=== PATIENT | female | born 1965 | race Caucasian/White ===

== ENCOUNTER 2019-03-17 02:12 | Emergency (ER) | payer BC ==
[2019-03-17 02:23] VITALS: BP 149/94
[2019-03-17] MEDS ORDERED: GLUCAGON,HUMAN RECOMB 1 MG INJ IM ONE (02:40)
--- NOTE | 2019-03-17 02:41 | ER Document Report ---
ED General - General Chief Complaint: Difficulty Swallowing Stated Complaint: VOMITING,POSSIBLE ESOPHAGEAL OBSTUCTION Time Seen by Provider: 03/17/19 02:27 Notes: Patient is a 53-year-old female who presents the emergency department with a chief complaint of piece of food stuck in her esophagus. She states that this evening she was eating at [employer] and felt a piece of her food gets lodged in her esophagus. Patient does have false teeth, therefore sometimes she does have food gets stuck in her esophagus, but normally it goes down for time, but this time it did not. She had dinner at 7 PM this evening. She states that she has also been vomiting. She states that she can feel every time she swallows something is in there. She has attempted to drink, but has not been able to keep any of her drink down. She states that she does feel anxious. She does take lorazepam 2 mg as needed. Her last dose was at 2200, and she states that since she has had the food stuck in her esophagus, she has been more anxious than normal. She also takes oxycodone and smokes marijuana. TRAVEL OUTSIDE OF THE [place] IN LAST 30 DAYS: No - Related Data Allergies/Adverse Reactions: No Known Allergies Allergy (Verified 03/17/19 02:23) Past Medical History - Social History Smoking Status: Never Smoker Frequency of alcohol use: None Drug Abuse: None Family History: Reviewed & Not Pertinent Patient has suicidal ideation: No Patient has homicidal ideation: No Renal/ Medical History: Denies: Hx Peritoneal Dialysis Review of Systems - Review of Systems Notes: REVIEW OF SYSTEMS: CONSTITUTIONAL : Denies recent illness. Denies recent unintentional weight loss. Denies fever, chills, or sweats. EENT: Denies eye, ear, throat, or mouth pain, discharge, or symptoms. Denies nasal or sinus congestion. CARDIOVASCULAR: Denies chest pain. RESPIRATORY: Denies shortness of breath, cough, congestion, difficulty breathing, or wheezing. GASTROINTESTINAL: See HPI GENITOURINARY: Denies difficulty urinating, burning, blood in urine, urgency or frequency. MUSCULOSKELETAL: Denies neck and back pain. Denies joint pain or swelling. SKIN: Denies rash, itchiness, or lesions HEMATOLOGIC : Denies easy bruising or bleeding. LYMPHATIC: Denies swollen, painful, enlarged glands. NEUROLOGICAL: Denies no numbness or tingling denies weakness. Denies headache. Denies altered mental status. Denies alteration in speech. PSYCHIATRIC: Denies stress, anxiety, alteration in sleep patterns, or depression. All other systems reviewed and negative. Physical Exam - Vital signs Vitals: Temp Pulse Resp BP Pulse Ox 97.9 F 94 20 149/94 H 98 03/17/19 02:19 03/17/19 02:19 03/17/19 02:03/17/19 02:03/17/19 02:19 - Notes Notes: PHYSICAL EXAMINATION: GENERAL: Appears well, healthy, well-nourished, no acute distress. HEAD: Normocephalic, atraumatic. EYES: PERRL, conjunctiva normal, all extraocular movements intact, sclera nonicteric ENT: Moist mucous membranes. NECK: Supple, no noticeable swelling, redness, rash. Normal range of motion. LUNGS: Equal breath sounds bilaterally and clear to auscultation. No wheezes rales or rhonchi. CARDIOVASCULAR: S1-S2, regular rate, regular rhythm. Radial pulses 2+, normal. ABDOMEN: Normoactive bowel sounds. Soft, nontender, no guarding, no rebound tenderness, and no masses palpated. EXTREMITIES: Normal strength and range of motion, no pitting or edema. No cyanosis. NEUROLOGICAL: Moves all extremities upon command. Strength 5/5 in all extremities. PSYCH: Anxious. SKIN: Warm, dry. No rash, lesions, ulcerations noted. Normal skin turgor. Course - Re-evaluation Re-evalutation: 03/17/19 03:11 She is requesting brittanie aj at this time. 03/17/19 03:15 Went to go check on the patient and she states that she has very anxious. She states that she tried to drink a sip of the brittanie aj and ended up throwing it up. She will receive a dose of Ativan here in the emergency department. When she calms down, we will try to see if she will be able to pass food. 03/17/19 04:28 Patient states that she still feels she has the feeling of having food stuck in her esophagus. I spoke with Dr. Orozco in regards to this case. He will evaluate the patient. 03/17/19 05:03 Patient states that she feels much better and is able to swallow now. Dr. Orozco came to bedside to evaluate her. Patient is tolerating oral fluids with no difficulty. Verbal discharge instructions were given to the patient. They verbalized understanding. They are stable for discharge. - Vital Signs Vital signs: Temp Pulse Resp BP Pulse Ox 97.9 F 94 20 149/94 H 98 03/17/19 02:19 03/17/19 02:19 03/17/19 02:19 03/17/19 02:03/17/19 02:19 Discharge - Discharge Clinical Impression: Esophageal obstruction due to food impaction Condition: Stable Disposition: HOME, SELF-CARE Additional Instructions: You were seen today in the emergency department for food stuck in your esophagus. The food passed with the help of medication. He can take [id number] Maalox to help soothe your esophagus. Use per bottle instructions. Drink plenty of ice water today. Please stick to soft foods like mashed potatoes, applesauce, milk, and putting, as your esophagus is most likely irritated. If you have this problem again, please return to the emergency department.
[2019-03-17] MEDS ORDERED: LORAZEPAM INJ 2 MG/1 ML VIAL IM ONE (03:14)
== END 2019-03-17 05:17 | disposition home or self-care (01) ==
LOC: ER 02:12
DX: T18.128A Food in esophagus causing other injury, initial encounter (principal); X58.XXXA Exposure to other specified factors, initial encounter; Y93.89 Activity, other specified; Y92.511 Restaurant or cafe as the place of occurrence of the external cause; R11.10 Vomiting, unspecified; F41.9 Anxiety disorder, unspecified; Z97.2 Presence of dental prosthetic device (complete) (partial)
CPT/HCPCS: 99283; 96372; J1610; J2060